=== PATIENT | female | born 1940 | race African-American/Black ===

== ENCOUNTER 2018-06-01 14:43 | Inpatient (IN) | payer MEDICARE, MEDICAID ==
[~2018-06-01] VITALS: Ht 165.1 cm; Wt 99.8 kg
--- NOTE | 2018-06-01 15:03 | NUR ---
[facility] FROM [facility] D/T LOW BLOOD PRESSURE PRIOR TO START OF HD. PATIENT'S BLOOD PRESSURE 114/49 UPON ARRIVAL TO ER. PATIENT IS TRACH DEPENDENT, ON 3 L OXYGEN. BREATHING EVEN AND UNLABORED. NO SOB, NAD, VITALS STABLE. IV PRESENT ON RIGHT HAND, 22 G FRONT DESK ATTENDANT. SAFETY AND COMFORT MEASURES IN PLACE. AWAITING MD ORDERS.
--- NOTE | 2018-06-01 15:24 | NUR ---
SELECT BANKER AT BEDSIDE FOR BLOOD DRAW.
[2018-06-01 15:41] LABS: BASOPHILS # (AUTO) 0.3 /CMM (0.0-0.2); BASOPHILS % (AUTO) 1.7 % (0.0-2.0); EOSINOPHILS % (AUTO) 2.3 % (0.0-6.0); HEMATOCRIT 33 % (33-45); HEMOGLOBIN 10.6 g/dL (11.5-14.8); LYMPHOCYTES # (AUTO) 1.5 /CMM (0.8-4.8); LYMPHOCYTES % (AUTO) 8.9 % (20.0-44.0); MEAN CORPUSCULAR HGB CONC 32 g/dl (31.0-36.0); MEAN CORPUSCULAR VOLUME 94 fL (82-100); MONOCYTES # (AUTO) 1.3 /CMM (0.1-1.30); MONOCYTES % (AUTO) 7.6 % (2.0-12.0); NEUTROPHILS % (AUTO) 79.5 % (43.0-81.0); PLATELET COUNT (AUTO) 290 /CMM (150-450); RDW COEFFICIENT OF VARIATION 21.4 (11.5-15.0); RED BLOOD CELL COUNT(AUTO) 3.53 MIL/uL (4.0-5.2); WHITE BLOOD COUNT (AUTO) 16.5 K/uL (4.3-11.0)
[2018-06-01 16:18] LABS: ALANINE AMINOTRANSFERASE 38 U/L (12-78); ALBUMIN 3.5 g/dL (3.4-5.0); ALKALINE PHOSPHATASE 271 U/L (46-116); ASPARTATE AMINOTRANSFERASE 27 U/L (15-37); BILIRUBIN,DIRECT 0.2 mg/dL (0.0-0.2); BILIRUBIN,TOTAL 0.5 mg/dL (0.2-1.0); CALCIUM, SERUM 10.4 mg/dL (8.5-10.1); CARBON DIOXIDE 35 mmol/L (21-32); CHLORIDE 105 mmol/L (98-107); CREATININE 5.3 mg/dL (0.6-1.3); GLUCOSE 156 mg/dL (74-106); SODIUM SERUM 148 mmol/L (136-145); TOTAL PROTEIN, SERUM 8.9 g/dL (6.4-8.2)
[2018-06-01 16:23] LABS: UREA NITROGEN, BLOOD 83 mg/dL (7-18)
--- NOTE | 2018-06-01 16:27 | NUR ---
RN NOTES RECEIVED PATIENT, OBTUNDED,TRACH IN PLACE AND PATENT. ON 2 LPM OXYGEN SUPPORT, BREATHING EVEN AND UNLABORED. PATIENT TRANSFERRED TO BED, VITAL SIGNS TAKEN FOLLOWS BP A28/66, HR AT 97, RR AT 18, TEMP AT 98.4.SATURATING WELL ON 99%. PHOTO OF THE SKIN ISSUES TAKEN. PATIENT CLEAN AND MADE COMFORTABLE. ASPIRATION AND SAFETY PRECAUTION PLACED IN. CALL LIGHT WITHIN PLACE WITHIN REACH. BED LOW AND LOCKED.
[2018-06-01 16:37] LABS: MAGNESIUM 2.8 mg/dL (1.8-2.4); PHOSPHORUS 5.1 mg/dL (2.5-4.9)
[2018-06-01] MEDS ORDERED: PIPERACILLIN /TAZOBACTAM 2.25 G in IV D5W 50 ML IV ONE (17:00)
--- NOTE | 2018-06-01 17:03 | NUR ---
CALLED DR GARNETT , LEFT A VOICEMAIL.
--- NOTE | 2018-06-01 17:33 | NUR ---
RN NOTES RECEIVED REPORT FROM THERESA MOORE FOR A PATIENT COMING IN DUE TO PULMONARY EDEMA WITH SHRUTHI ACUITY UNDER THE CARE OF DR. BONNER. ROOM PREPARED. BED ZERO DOWN.AWAITING PATIENTS ARRIVAL.
--- NOTE | 2018-06-01 17:33 | NUR ---
REPORT GIVEN TO RN, CHATO FOR MIMI UPON ADMISSION.
[2018-06-01] MEDS ORDERED: FOLI0.8T2 GT (17:47)
[2018-06-01] MEDS ORDERED: METO25TA6 PO (17:47)
[2018-06-01] MEDS ORDERED: APIX2.5T GT (17:47)
[2018-06-01] MEDS ORDERED: ACET-868 PO (17:47)
[2018-06-01] MEDS ORDERED: ASCO-340 GT (17:47)
[2018-06-01] MEDS ORDERED: LACT10SO GT (17:47)
[2018-06-01] MEDS ORDERED: ZINC220T GT (17:47)
[2018-06-01] MEDS ORDERED: INSU100V11 SQ (17:47)
[2018-06-01] MEDS ORDERED: LACT1CAP61 PO (17:47)
[2018-06-01] MEDS ORDERED: FAMO20TA8 GT (17:47)
[2018-06-01] MEDS ORDERED: MIDO10TA PO (17:47)
--- NOTE | 2018-06-01 18:27 | NUR ---
PATIENT TRANSPORTED TO [facility] VIA ACLS PROTOCOL. RN, CHATO TO PROVIDE MIMI.
[2018-06-01 20:00] VITALS: BP 122/58
[2018-06-01] MEDS ORDERED: ALBUMIN 25% 25 GM in PREMIX 1 EA IV ONE (20:00)
--- NOTE | 2018-06-01 20:24 | NUR ---
RN NOTES PATIENT ENDORSED FOR CONTINUTIY OF CARE.STABLE FOR THE ENTIRE TIME AFTER BEING TRANSFERRED TO UNIT FROM ER. BREATHING EVEN AND UNLABORED. NO SIGNS OF DISCOMFORT. FAMILY HISTORY, PAST MEDICAL HISTORY AND OTHER PERTINENT INFORMATION CANNOT BE SUFFICIENTLY OBTAIN FROM THE PATIENT DUE TO PATIENT ALTERED MENTAL STATUS. WILL ENDORSED.
[2018-06-01] MEDS ORDERED: INSULIN ASPART SQ PRN (23:30)
[2018-06-01] MEDS ORDERED: ACETAMINOPHEN 325 MG TABLET PO PRN (23:30)
--- NOTE | 2018-06-01 23:53 | NUR ---
TELE-TD/ACTUARIAL TECHNICIAN DR. BONNER IN TO SEE PT. NEW ORDERS RECEIVED AND CARRIED OUT.
[2018-06-02] VITALS: BP 97/43
[2018-06-02] MEDS ORDERED: ZINC SULFATE 220 MG CAPSULE PO ONE
[2018-06-02] MEDS ORDERED: DEXTROSE 50%-WATER 50 ML DISP.SYRIN IV PRN ×2 (01:00→06:30)
[2018-06-02] MEDS ORDERED: NEPRO 1,000 ML BOTTLE GT PRN ×2 (03:30)
[2018-06-02 04:00] VITALS: BP 106/49
[2018-06-02] MEDS ORDERED: Medication Not On Formulary EA (Midodrine Hcl 10 MG) PO SCH (05:00)
[2018-06-02] MEDS ORDERED: BLOOD SUGAR DIAGNOSTIC 1 EACH STRIP IN SCH (06:00)
[2018-06-02] MEDS ORDERED: INSULIN ASPART SQ PRN (06:00)
[2018-06-02] MEDS: BLOOD SUGAR DIAGNOSTIC 1 EACH STRIP IN SCH ×3 (06:16→18:23)
[2018-06-02] MEDS: INSULIN REGULAR, HUMAN 100 UNIT/ML 3 ML VIAL SQ PRN ×3 (06:18→17:48)
[2018-06-02 06:38] LABS: B-TYPE NATRIURETIC PEPTIDE 5029 PG/ML (0-125); CALCIUM, SERUM 9.8 mg/dL (8.5-10.1); CARBON DIOXIDE 29 mmol/L (21-32); CHLORIDE 106 mmol/L (98-107); CREATININE 4.2 mg/dL (0.6-1.3); GLUCOSE 230 mg/dL (74-106); POTASSIUM 4.5 mmol/L (3.5-5.1); SODIUM SERUM 146 mmol/L (136-145); UREA NITROGEN, BLOOD 54 mg/dL (7-18)
[2018-06-02 06:41] LABS: THYROID STIMULATING HORMONE 1.586 uIU/mL (0.358-3.74)
[2018-06-02 06:42] LABS: C-REACTIVE PROTEIN 5.3 mg/dL (0.0-0.9)
[2018-06-02 06:46] LABS: TROPONIN I 0.031 ng/mL (0.00-0.056)
[2018-06-02 07:24] LABS: BASOPHILS % (AUTO) 0.2 % (0.0-2.0); EOSINOPHILS % (AUTO) 2.4 % (0.0-6.0); HEMATOCRIT 31 % (33-45); HEMOGLOBIN 10.5 g/dL (11.5-14.8); LYMPHOCYTES # (AUTO) 1.7 /CMM (0.8-4.8); LYMPHOCYTES % (AUTO) 11.2 % (20.0-44.0); MEAN CORPUSCULAR HGB CONC 34 g/dl (31.0-36.0); MEAN CORPUSCULAR VOLUME 94 fL (82-100); MONOCYTES # (AUTO) 1.5 /CMM (0.1-1.30); MONOCYTES % (AUTO) 9.6 % (2.0-12.0); NEUTROPHILS # (AUTO) 11.5 /CMM (1.8-8.9); NEUTROPHILS % (AUTO) 76.6 % (43.0-81.0); PLATELET COUNT (AUTO) 218 /CMM (150-450); RDW COEFFICIENT OF VARIATION 21.1 (11.5-15.0); RED BLOOD CELL COUNT(AUTO) 3.33 MIL/uL (4.0-5.2); WHITE BLOOD COUNT (AUTO) 15.1 K/uL (4.3-11.0)
--- NOTE | 2018-06-02 07:30 | NUR ---
SHRUTHI RN OPENING NOTES RECEIVED REPOT FROM PM NURSE, PATIENT IN BED ,OBTUNDED. ON TELE MON ST 103.IV ON R HAND #22,R CHEST WALL HD CATH, IV SITE INTACT AND PATENT NO INFILTRATION NOTED, ON VENTILATOR.TOLERATING SETTINGS ORDERED. , NO SOB ,NO DISTRESS NOTED AT THIS TIME .BED IS LOCKED AND IN LOW POSITION.CALL LIGHT IN REACH.SRX3.WILL CONTINUE TO MONITOR..
[2018-06-02 08:00] VITALS: BP 112/45
[2018-06-02] MEDS: ZINC SULFATE 220 MG CAPSULE PO SCH (08:29)
[2018-06-02] MEDS: ACIDOPHILUS/BULGARICUS 1 EACH TAB.CHEW PO SCH (08:29)
[2018-06-02] MEDS: FAMOTIDINE (20 MG) 20 MG TABLET GT SCH (08:29)
[2018-06-02] MEDS: ACETAMINOPHEN 325 MG TABLET PO PRN (08:31)
[2018-06-02 09:47] LABS: ABG OXYGEN SATURATION 96.7 % (92.0-98.5); ABG PCO2 41.6 mmHg (35.0-45.0); ABG PH 7.424 (7.350-7.450); ABG PO2 98.9 mmHg (75.0-100.0); AaDO2 138.5 mmHg; COHb 0.3 % (0.5-1.5); MetHb 0.9 % (0.0-1.5); O2Hb 95.5 % (94.0-97.0); PEEP,BG 5 cm H2O; SITE, ABG Right Brachial; VT, ABG 500 mL
[2018-06-02] MEDS: APIXABAN 2.5 MG TABLET GT SCH ×2 (09:52→22:05)
[2018-06-02 12:00] VITALS: BP 85/39
[2018-06-02] MEDS: MIDODRINE HCL (5MG) 5 MG TABLET PO PRN (12:32)
[2018-06-02 16:00] VITALS: BP_SYST 110; BP_SYST 124; BP_DIAS 39; BP_DIAS 40
--- NOTE | 2018-06-02 16:15 | NUR ---
SKULL GRINDER NOTE SEEN BY .UPDATED ABOUT PATIENT CONDITION WITH LABS.WILL CONTINUE TO MONITOR.NOTIFIED BLOOD PRESSURE WAS LOW AND GIVEN PRN MEDS FOR LOW BLOOD PRESSURE.
--- NOTE | 2018-06-02 16:45 | NUR ---
RT RECD PT TRACHED INTACT AND SECURED ON MECH VENT LUCILLE ORDERED SETTING ALARMS ON AND AUDIBLE BAG & MASK AT HOB. SX THICK YELLOW MODERATE SECRETIONS. NO RESP DISTRESS NOTED ATT WILL CONTINUE TO MONITOR
--- NOTE | 2018-06-02 19:29 | NUR ---
AUTOMOBILE SALESMAN CLOSING NOTE PATIENT IN BED IN STABLE CONDITION.DIETARY RECOMMENDATION ,WILL ENDORSED TO PM NURSE TO F/U WITH WHILE DO ROUNDS.AND ALSO F/U WITH NEED FOR ATB FOR PATIENT.
[2018-06-02 20:00] VITALS: BP 119/37
--- NOTE | 2018-06-02 20:00 | NUR ---
SHRUTHI RN OPENING NOTES RECEIVED BEDSIDE REPORT FROM AM NURSE. PATIENT IN BED ,OBTUNDED. ON TELE MON ST 102. IV ON R HAND #22 IS INTACT, PATIENT, NO INFILTRATION NOTED. RIGHT CHEST WALL HD CATH IN PLACE AND INTACT, ON VENTILATOR,.TOLERATING SETTINGS ORDERED WELL. , NO SOB ,NO DISTRESS NOTED AT THIS TIME .BED IS LOCKED AND IN LOW POSITION.CALL LIGHT IN REACH.SRX3.WILL CONTINUE TO MONITOR.
[2018-06-02] MEDS ORDERED: Medication Not On Formulary EA (Lactulose 30 ML) GT SCH (22:00)
[2018-06-02] MEDS: LACTULOSE 10 G/15 ML UDC (PYXIS) PO SCH (22:06)
[2018-06-03] VITALS: BP 120/42
[2018-06-03] MEDS: BLOOD SUGAR DIAGNOSTIC 1 EACH STRIP IN SCH ×5 (00:50→23:27)
--- NOTE | 2018-06-03 00:50 | NUR ---
RN NOTES VICTOR HUGO FIGUEROA AT THE PATIENT'S BEDSIDE AND HAS BEEN NOTIFIED TERRITORY SALES EXECUTIVE RECOMMENDATION TO INCREASE GTF TO 45ML/HR. NEW ORDER IS IN PLACE. PATIENT HAS NO RESIDUAL AT THIS TIME.
[2018-06-03] MEDS: INSULIN REGULAR, HUMAN 100 UNIT/ML 3 ML VIAL SQ PRN ×5 (00:54→23:20)
[2018-06-03 04:00] VITALS: BP 111/52
--- NOTE | 2018-06-03 05:45 | NUR ---
PATIENT RECEIVED ON MECHANICAL VENTILATION WITH SETTINGS OF AC 12, 500 VT, 40%, +5. SUCTIONED FOR MINIMAL, THIN, YELLOW-CREAM SECRETIONS. NO OTHER ADVERSE REACTIONS NOTED. AMBU BAG AT BEDSIDE. VENT AND PULSE OXIMETER ALARMS AUDIBLE AND VISIBLE. VENT IS PLUGGED IN RED OUTLET. Addendum: 06/03/18 at 0547 by CONY CARLIN RT Amended: Links added.
[2018-06-03] MEDS ORDERED: PIPERACILLIN /TAZOBACTAM 2.25 G VIAL IV ONE (06:14)
[2018-06-03 06:20] LABS: BASOPHILS % (AUTO) 0.2 % (0.0-2.0); CARBON DIOXIDE 31 mmol/L (21-32); CHLORIDE 103 mmol/L (98-107); CREATININE 4.4 mg/dL (0.6-1.3); EOSINOPHILS % (AUTO) 1.2 % (0.0-6.0); GLUCOSE 296 mg/dL (74-106); HEMATOCRIT 32 % (33-45); HEMOGLOBIN 9.9 g/dL (11.5-14.8); LYMPHOCYTES # (AUTO) 1.7 /CMM (0.8-4.8); LYMPHOCYTES % (AUTO) 8.3 % (20.0-44.0); MEAN CORPUSCULAR HGB CONC 31 g/dl (31.0-36.0); MEAN CORPUSCULAR VOLUME 96 fL (82-100); NEUTROPHILS # (AUTO) 16.1 /CMM (1.8-8.9); NEUTROPHILS % (AUTO) 80.3 % (43.0-81.0); PLATELET COUNT (AUTO) 250 /CMM (150-450); POTASSIUM 4.5 mmol/L (3.5-5.1); RDW COEFFICIENT OF VARIATION 23.5 (11.5-15.0); RED BLOOD CELL COUNT(AUTO) 3.31 MIL/uL (4.0-5.2); SODIUM SERUM 144 mmol/L (136-145); UREA NITROGEN, BLOOD 55 mg/dL (7-18)
[2018-06-03] MEDS: PIPERACILLIN /TAZOBACTAM 2.25 G in IV D5W 50 ML IV SCH ×4 (06:52→23:11)
--- NOTE | 2018-06-03 07:15 | NUR ---
HIDE TANNER INITIAL NOTES RECEIVED PT IN BED. TRACH TO VENT SETTINGS MD ORDERED. PT O2 SAT AT 100% NO SIGNS OF RESP DISTRESS. HOB ELEVATED SEMI FOWLERS. PT IS OBTUNDED BUT OPENS EYES. PT HAD EPISODE OF VERY LARGE LOOSE STOOL DOWN TO LEGS. WOUND NURSE AT BS. ORDERED FLEXISEAL AND ATTACHED. SAFETY PRECAUTIONS MAINTAINED. CALL LIGHT IN REACH. WILL CONT TO MONITOR.
[2018-06-03 08:00] VITALS: BP 114/54
--- NOTE | 2018-06-03 08:37 | NUR ---
RT RECEIVED PT [facility]/ NOTED SETTINGS. PAPER TWISTER TENDER DONE AND TRACH IS SECURE. VENT ALARMS CHECKED AND AUDIBLE. VENT PLUGGED IN RED OUTLET. AMBU BAG NOTED HOB. PT ON CONTINUOUS PULSE OX. PT TOLERATING SETTINGS WELL. SX WITH MOD THK WHITE/CLEAR SECRETIONS. NO SOB OR RESP DISTRESS NOTED, WILL CONTINUE TO MONITOR T/O SHIFT.
[2018-06-03] MEDS: ACIDOPHILUS/BULGARICUS 1 EACH TAB.CHEW PO SCH (08:48)
[2018-06-03] MEDS: APIXABAN 2.5 MG TABLET GT SCH ×2 (08:48→21:48)
[2018-06-03] MEDS: ZINC SULFATE 220 MG CAPSULE PO SCH (08:48)
[2018-06-03] MEDS: FAMOTIDINE (20 MG) 20 MG TABLET GT SCH (08:49)
[2018-06-03] MEDS ORDERED: HYDROGEL DRESSING 90 GM TUBE TP PRN (09:30)
--- NOTE | 2018-06-03 09:36 | NUR ---
WOUND CARE CONSULT: PT PRESENTS WITH VERY LARGE AMOUNT OF LIQUID STOOL. UNSTAGEABLE PRESSURE ULCER NOTED TO SACRUM AND STAGE 3 ULCER NOTED TO RT POSTERIOR THIGH, RASH WITH MOISTURE ASSOCIATED SKIN IRRITATION TO RT ABDOMINAL FOLD, PRESENT ON ADMISSION. PT ON NGOC ISOFLEX LOW AIRLOSS BED. ALL SKIN PROTECTION AND WOUND CARE RECOMMENDATIONS DISCUSSED WITH NURSING STAFF. SURGICAL CONSULT RECOMMENDED. WILL SEE PRN. SHER IN AGREEMENT WITH PLAN OF CARE. CURRENT KEVIN SCORE IS 10. Addendum: 06/03/18 at 0939 by BEVERLY PARKS WNDNU Amended: Links added.
[2018-06-03] MEDS: HYDROGEL DRESSING 90 GM TUBE TP SCH (10:35)
[2018-06-03] MEDS: Z GUARD REMEDY 2 OZ OINT TP PRN ×3 (10:35→10:43)
[2018-06-03] MEDS: ACETAMINOPHEN 325 MG TABLET PO PRN (10:38)
[2018-06-03] MEDS: Z GUARD REMEDY 2 OZ OINT TP SCH (10:44)
--- NOTE | 2018-06-03 11:38 | NUR ---
BATCH ROLLER OPERATOR NOTES HD DIALYSIS NURSE STARTED HD FLUIDS ONLY: AT 10 AM BP 110/53 HR 98 END WITH 2L OUT: 105/47 HR 104.
[2018-06-03 12:00] VITALS: BP 99/52
[2018-06-03 16:00] VITALS: BP 99/52
--- NOTE | 2018-06-03 16:30 | NUR ---
ms mays stool specimen for cdiff sent to lab.
--- NOTE | 2018-06-03 16:47 | NUR ---
ms rn on bed, no distress noted,all needs attended.
[2018-06-03] MEDS: CLOTRIMAZOLE 1% 15 GM TUBE TP SCH (17:27)
[2018-06-03] MEDS: NEPRO 1,000 ML BOTTLE GT PRN (18:01)
--- NOTE | 2018-06-03 19:30 | NUR ---
CHRISTMAS [employer]REE [employer] CREW BOSS ENDING NOTES PT ENDORSED TO PM NURSE FOR CONTINUED CARE. PT IS NOT IN DISTRESS. BED IN LOCKED/LOW POSITION. CALL LIGHT IN REACH. SAFETY PRECAUTIONS MAINTAINED.
[2018-06-03 20:00] VITALS: BP 92/44
[2018-06-03] MEDS: LACTULOSE 10 G/15 ML UDC (PYXIS) PO SCH (21:50)
[2018-06-04] VITALS: BP 118/43
[2018-06-04 04:00] VITALS: BP 99/40
[2018-06-04] MEDS: PIPERACILLIN /TAZOBACTAM 2.25 G in IV D5W 50 ML IV SCH ×4 (05:22→23:28)
[2018-06-04 06:03] LABS: BASOPHILS % (AUTO) 0.3 % (0.0-2.0); EOSINOPHILS % (AUTO) 2.6 % (0.0-6.0); HEMATOCRIT 33 % (33-45); HEMOGLOBIN 10.3 g/dL (11.5-14.8); LYMPHOCYTES # (AUTO) 1.5 /CMM (0.8-4.8); LYMPHOCYTES % (AUTO) 10.7 % (20.0-44.0); MEAN CORPUSCULAR HGB CONC 31 g/dl (31.0-36.0); MEAN CORPUSCULAR VOLUME 96 fL (82-100); MONOCYTES # (AUTO) 1.3 /CMM (0.1-1.30); MONOCYTES % (AUTO) 9.3 % (2.0-12.0); NEUTROPHILS # (AUTO) 10.7 /CMM (1.8-8.9); NEUTROPHILS % (AUTO) 77.1 % (43.0-81.0); PLATELET COUNT (AUTO) 227 /CMM (150-450); RDW COEFFICIENT OF VARIATION 23.4 (11.5-15.0); RED BLOOD CELL COUNT(AUTO) 3.45 MIL/uL (4.0-5.2); WHITE BLOOD COUNT (AUTO) 13.9 K/uL (4.3-11.0)
[2018-06-04 06:13] LABS: B-TYPE NATRIURETIC PEPTIDE 4453 PG/ML (0-125); CALCIUM, SERUM 9.8 mg/dL (8.5-10.1); CARBON DIOXIDE 27 mmol/L (21-32); CHLORIDE 102 mmol/L (98-107); CREATININE 5.4 mg/dL (0.6-1.3); SODIUM SERUM 140 mmol/L (136-145); UREA NITROGEN, BLOOD 70 mg/dL (7-18)
[2018-06-04 06:22] LABS: GLUCOSE 378 mg/dL (74-106)
[2018-06-04] MEDS: INSULIN REGULAR, HUMAN 100 UNIT/ML 3 ML VIAL SQ PRN ×4 (06:34→23:22)
[2018-06-04] MEDS: BLOOD SUGAR DIAGNOSTIC 1 EACH STRIP IN SCH ×4 (06:34→23:22)
--- NOTE | 2018-06-04 06:35 | NUR ---
RN NOTES PATIENT IN BED RESTING COMFORTABLY WITH NO RESPIRATORY DISTRESS OR SHORTNESS OF BREATH. VENT SETTING WELL TOLERATED. ON GTUBE FEEDING, NO LEAKAGE, 0 RESIDUAL. FEEDING WELL TOLERATED. HEAD OF BED ELEVATED. ABDOMEN SOFT AND NON TENDER. NO PHYSICAL MANIFESTATION OF PAIN OR DISCOMFORT. NOTED WITH HIGH BLOOD SUGAR LEVEL OF 376, ADMINISTERED 10 UNITS OF INSULIN. KEPT CLEAN AND DRY. WILL ENDORSE TO AM SHIFT FOR CONTINUITY OF CARE
--- NOTE | 2018-06-04 07:10 | NUR ---
TELE/RN INITIAL NOTES RECEIVED PT IN BED, OBTUNDED. SINUS TACHY HR 103 ON TELEMONITOR. WITH INTACT TRACH PORTEX 8; TOLERATING VENT SETTINGS AC 14, TV 500, FIO2 40, PEEP 5. NO SOB NOTED. FLEXI SEAL INTACT AND IN PLACED. DRAINING LOOSE BROWN STOOL. GT INTACT AND IN PLACED, WITH ONGOING GTF NEPHRO 65 ML/HR TOLERATING WELL, NO RESIDUALS NOTED.HOB ELEVATED. RUCHEST HD CATH INTACT. RHAND G22 SL INTACT AND PATENT. SAFETY MEASURES IN PLACED. WILL CONT TO MONITOR
[2018-06-04 08:00] VITALS: BP_SYST 87; BP_DIAS 14; BP_DIAS 40
[2018-06-04] MEDS: ZINC SULFATE 220 MG CAPSULE PO SCH (08:53)
[2018-06-04] MEDS: FAMOTIDINE (20 MG) 20 MG TABLET GT SCH (08:53)
[2018-06-04] MEDS: ACIDOPHILUS/BULGARICUS 1 EACH TAB.CHEW PO SCH (08:53)
[2018-06-04] MEDS: APIXABAN 2.5 MG TABLET GT SCH ×2 (08:53→21:23)
[2018-06-04] MEDS: MIDODRINE HCL (5MG) 5 MG TABLET PO PRN (08:54)
[2018-06-04] MEDS: HYDROGEL DRESSING 90 GM TUBE TP SCH (08:54)
[2018-06-04] MEDS: CLOTRIMAZOLE 1% 15 GM TUBE TP SCH ×2 (08:55→16:25)
[2018-06-04] MEDS: Z GUARD REMEDY 2 OZ OINT TP SCH (08:56)
[2018-06-04 12:00] VITALS: BP 100/25
--- NOTE | 2018-06-04 15:10 | NUR ---
RN NOTES PT'S TEMPT 99.1, COOLING MEASURES GIVEN, PRN TYLENOL GIVEN. WILL CONT TO MONITOR
[2018-06-04] MEDS: ACETAMINOPHEN 325 MG TABLET PO PRN (15:12)
[2018-06-04 16:00] VITALS: BP 100/27
--- NOTE | 2018-06-04 16:04 | NUR ---
RN NOTES RECHECKED PT'S TEMPT=98.1
[2018-06-04] MEDS: NEPRO 1,000 ML BOTTLE GT PRN (16:23)
--- NOTE | 2018-06-04 17:25 | NUR ---
RN NOTES PT'S WE=830, 10 UNITS REGULAR WILL BE GIVEN VIA SQ. DR BONNER NOTIFIED
--- NOTE | 2018-06-04 18:00 | NUR ---
RN NOTES REPEAT [id number], NOTIFIED DR BONNER. AWAITING FOR NEW ORDERS
--- NOTE | 2018-06-04 19:23 | NUR ---
RN NOTES PT IN STABLE CONDITION. NO ACUTE DISTRESS NOTED THROUGHOUT SHIFT. ASPIRATION AND SAFETY MEASURES OBSERVED AT ALL TIMES. ALL NEEDS ANTICIPATED. ENDORSED TO PM SHIFT RN FOR MIMI
[2018-06-04 20:00] VITALS: BP 112/53
--- NOTE | 2018-06-04 20:05 | NUR ---
PT RCVD TRACH'D ON MECHANICAL VENT WITH CHARTED SETTINGS. PT TOLERATING SETTINGS WELL AT THIS TIME. SX DONE. PT TRACH PATENT AND SECURE. AMBU BAG AT BEDSIDE. VENT PLUGGED INTO RED OUTLET. ALARMS ARE ON AND AUDIBLE. WILL CONTINUE TO MONITOR. Addendum: 06/04/18 at 2006 by CATY AKINS RT Amended: Links added.
[2018-06-04] MEDS: LACTULOSE 10 G/15 ML UDC (PYXIS) PO SCH (22:00)
[2018-06-05] VITALS (9 sets, daily range): BP systolic 89–105; BP diastolic 36–50
[2018-06-05] MEDS: BLOOD SUGAR DIAGNOSTIC 1 EACH STRIP IN SCH ×7 (01:58→16:50)
[2018-06-05] MEDS: INSULIN REGULAR, HUMAN 100 UNIT/ML 3 ML VIAL SQ PRN ×6 (01:58→16:58)
[2018-06-05] MEDS ORDERED: DEXTROSE 50%-WATER 50 ML DISP.SYRIN IV PRN (02:00)
[2018-06-05] MEDS: PIPERACILLIN /TAZOBACTAM 2.25 G in IV D5W 50 ML IV SCH ×3 (05:16→16:50)
[2018-06-05 06:51] LABS: CALCIUM, SERUM 10.5 mg/dL (8.5-10.1); CARBON DIOXIDE 27 mmol/L (21-32); CHLORIDE 100 mmol/L (98-107); CREATININE 5.9 mg/dL (0.6-1.3); GLUCOSE 335 mg/dL (74-106); MAGNESIUM 2.8 mg/dL (1.8-2.4); PHOSPHORUS 4.9 mg/dL (2.5-4.9); POTASSIUM 4.1 mmol/L (3.5-5.1); SODIUM SERUM 141 mmol/L (136-145); UREA NITROGEN, BLOOD 79 mg/dL (7-18)
[2018-06-05 06:58] LABS: BASOPHILS % (AUTO) 0.2 % (0.0-2.0); EOSINOPHILS % (AUTO) 2.5 % (0.0-6.0); HEMATOCRIT 31 % (33-45); HEMOGLOBIN 9.8 g/dL (11.5-14.8); LYMPHOCYTES # (AUTO) 1.9 /CMM (0.8-4.8); LYMPHOCYTES % (AUTO) 9.2 % (20.0-44.0); MEAN CORPUSCULAR HGB CONC 32 g/dl (31.0-36.0); MEAN CORPUSCULAR VOLUME 97 fL (82-100); MONOCYTES # (AUTO) 1.9 /CMM (0.1-1.30); MONOCYTES % (AUTO) 9.1 % (2.0-12.0); NEUTROPHILS # (AUTO) 16.5 /CMM (1.8-8.9); PLATELET COUNT (AUTO) 202 /CMM (150-450); RDW COEFFICIENT OF VARIATION 22.7 (11.5-15.0); RED BLOOD CELL COUNT(AUTO) 3.17 MIL/uL (4.0-5.2); WHITE BLOOD COUNT (AUTO) 20.9 K/uL (4.3-11.0)
--- NOTE | 2018-06-05 06:59 | NUR ---
RN NOTES IN BED RESTING COMFORTABLY WITH NO DISTRESS NOTED. BREATHING EVEN AND UNLABORED. NO PHYSICAL MANIFESTATION OF PAIN OR DISCOMFORT. OBTUNDED, OPENS EYES. NO TRACKING NOTED. NO SIGNIFICANT CHANGE OF CONDITION. KEPT CLEAN AND DRY. WILL ENDORSE TO AM SHIFT FOR CONTINUITY OF CARE
[2018-06-05] MEDS: ZINC SULFATE 220 MG CAPSULE PO SCH (09:21)
[2018-06-05] MEDS: FAMOTIDINE (20 MG) 20 MG TABLET GT SCH (09:21)
[2018-06-05] MEDS: APIXABAN 2.5 MG TABLET GT SCH ×2 (09:21→21:38)
[2018-06-05] MEDS: ACIDOPHILUS/BULGARICUS 1 EACH TAB.CHEW PO SCH (09:21)
[2018-06-05] MEDS: HYDROGEL DRESSING 90 GM TUBE TP SCH (09:22)
[2018-06-05] MEDS: CLOTRIMAZOLE 1% 15 GM TUBE TP SCH ×2 (09:22→16:42)
[2018-06-05] MEDS: Z GUARD REMEDY 2 OZ OINT TP SCH (09:24)
--- NOTE | 2018-06-05 10:15 | NUR ---
Patient completed dialysis and had blood pressure of 101/43 and pulse of 101 afterward. Five hundred milliliters was removed.
--- NOTE | 2018-06-05 15:55 | NUR ---
Attempt 22 g left wrist x2. Missed patient vein once. Blew the vein the next attempt. Pressure dressing applied. Endorsed to THERESA Blackburn. Addendum: 06/05/18 at 1556 by JEIMY PAIZ RN Above was right wrist
--- NOTE | 2018-06-05 17:12 | NUR ---
Alexey mercedes IV x2 patient needs for further assistance. Addendum: 06/05/18 at 1713 by JEIMY PAIZ RN Leatha villagomez
--- NOTE | 2018-06-05 19:52 | NUR ---
HANDOFF TO NIGHT NURSE, THERESA IZAGUIRRE.
--- NOTE | 2018-06-05 20:30 | NUR ---
PATIENT WAS RECEIVED ON CONTINUOUS VENT SUPPORT ON NOTED VENT SETTINGS. B/S RHONCHI SUCTIONED WITH A MODERATE AMOUNT OF THIN PALE YELLOWISH SECRETIONS. VENT PLUGGED INTO RED OUTLET. AMBUBAG AND SPARE TRACH AT BEDSIDE. TRACH TUBE PATENT AND SECURED. PATIENT STABLE AT THIS TIME. WILL CONTINUE TO MONITOR. Addendum: 06/05/18 at 2031 by MONIQUE JANSEN RT Amended: Links added.
[2018-06-05] MEDS: LACTULOSE 10 G/15 ML UDC (PYXIS) PO SCH (21:48)
[2018-06-06] VITALS: BP 104/82
[2018-06-06] MEDS: PIPERACILLIN /TAZOBACTAM 2.25 G in IV D5W 50 ML IV SCH ×4 (00:01→19:03)
[2018-06-06 04:00] VITALS: BP 97/53
[2018-06-06] MEDS: BLOOD SUGAR DIAGNOSTIC 1 EACH STRIP IN SCH ×4 (05:40→18:59)
[2018-06-06] MEDS: INSULIN REGULAR, HUMAN 100 UNIT/ML 3 ML VIAL SQ PRN ×4 (05:40→19:01)
--- NOTE | 2018-06-06 07:03 | NUR ---
RN NOTES PATIENT IN BED RESTING COMFORTABLY. NO DISTRESS NOTED. BREATHING EVEN AND UNLABORED. VENT SETTING WELL TOLERATED. NO PHYSICAL MANIFESTATION OF PAIN OR DISCOMFORT. NOTED WITH HIGH BLOOD SUGAR LEVEL OF 416, RELAYED TO MD, WAITING FOR RESPONSE. KEPT CLEAN AND DRY WILL ENDORSE TO AM SHIFT FOR CONTINUITY OF CARE
--- NOTE | 2018-06-06 07:30 | NUR ---
INITIAL PATIENT IN BED RESTING COMFORTABLY. NO DISTRESS NOTED. BREATHING EVEN AND UNLABORED. VENT SETTING WELL TOLERATED. NO PHYSICAL MANIFESTATION OF PAIN OR DISCOMFORT. NOTED WITH HIGH BLOOD SUGAR LEVEL OF 416, BY ADULT AND PEDIATRIC NEUROLOGIST RN RELAYED TO MD,STILL WAITING FOR RESPONSE. KEPT CLEAN AND DRY WILL ENDORSE TO AM SHIFT FOR CONTINUITY OF CARE
[2018-06-06 08:00] VITALS: BP 115/55
[2018-06-06] MEDS: CLOTRIMAZOLE 1% 15 GM TUBE TP SCH ×2 (10:12→17:54)
[2018-06-06] MEDS: HYDROGEL DRESSING 90 GM TUBE TP SCH (10:12)
[2018-06-06] MEDS: ACIDOPHILUS/BULGARICUS 1 EACH TAB.CHEW PO SCH (10:12)
[2018-06-06] MEDS: FAMOTIDINE (20 MG) 20 MG TABLET GT SCH (10:12)
[2018-06-06] MEDS: ZINC SULFATE 220 MG CAPSULE PO SCH (10:12)
[2018-06-06] MEDS: APIXABAN 2.5 MG TABLET GT SCH ×2 (10:13→21:26)
[2018-06-06] MEDS: Z GUARD REMEDY 2 OZ OINT TP SCH (10:13)
[2018-06-06] MEDS: NEPRO 1,000 ML BOTTLE GT PRN (10:53)
[2018-06-06 12:00] VITALS: BP 109/45
[2018-06-06 16:00] VITALS: BP_SYST 81; BP_SYST 83; BP_DIAS 36; BP_DIAS 37
[2018-06-06 20:00] VITALS: BP 114/45
--- NOTE | 2018-06-06 20:00 | NUR ---
MASONRY INSTRUCTOR INITIAL NOTES, PATIENT IN BED RESTING COMFORTABLY ON MECHANICAL VENTILATOR TOLERATING SETTINGS WELL, BREATHING EVEN AND UNLABORED, NO DISTRESS NOTED OR SOB AT THIS TIME, NO S/S OF PAIN OR DISCOMFORT, GTF INFUSING WELL AND PATIENT TOLERATED WELL, NO RESIDUAL NOTED AT THIS TIME, KEPT CLEAN AND DRY, AND WELL REPOSITIONED AT THIS TIME, WILL CONTINUE TO MONITOR CLOSELY,
[2018-06-06] MEDS: LACTULOSE 10 G/15 ML UDC (PYXIS) PO SCH (21:26)
[2018-06-07] VITALS: BP 101/46
[2018-06-07] MEDS: PIPERACILLIN /TAZOBACTAM 2.25 G in IV D5W 50 ML IV SCH ×4 (00:07→21:14)
[2018-06-07] MEDS: BLOOD SUGAR DIAGNOSTIC 1 EACH STRIP IN SCH ×4 (00:10→17:39)
[2018-06-07] MEDS: INSULIN REGULAR, HUMAN 100 UNIT/ML 3 ML VIAL SQ PRN ×4 (00:13→17:41)
--- NOTE | 2018-06-07 00:43 | NUR ---
POSTAL SUPERINTENDENT NOTES, MD BONNER AT THIS DEPARTMENT AT THIS TIME, REVIEWED THE BS LEVELS FOR THE LAST DAY FOR PATIENT AND ORDERED TO GIVE 30 UNITS LANTUS NOW TIMES ONCE, ORDER NOTED AND CARRIED OUT, WILL CONTINUE TO MONITOR CLOSELY.
[2018-06-07] MEDS ORDERED: INSULIN GLARGINE, 100 UNIT/ML CARTRIDGE SQ ONE (01:00)
[2018-06-07 04:00] VITALS: BP 121/58
--- NOTE | 2018-06-07 06:01 | NUR ---
PATIENT RECEIVED IN MECHANICAL VENTILATION SUPPORT WITH SETTINGS OF AC 12, 500 VT, 40%, +5. SUCTIONED FOR MINIMAL, THIN, YELLOW-CREAM SECRETIONS. AMBU BAG AT BEDSIDE. VENT AND PULSE OXIMETER ALARMS AUDIBLE AND VISIBLE. VENT IS PLUGGED IN RED OUTLET. NO OTHER ADVERSE REACTIONS NOTED. Addendum: 06/07/18 at 0603 by CONY CARLIN RT Amended: Links added.
[2018-06-07 07:00] LABS: BASOPHILS % (AUTO) 0.2 % (0.0-2.0); EOSINOPHILS % (AUTO) 3.4 % (0.0-6.0); HEMATOCRIT 29 % (33-45); HEMOGLOBIN 9.1 g/dL (11.5-14.8); LYMPHOCYTES # (AUTO) 1.2 /CMM (0.8-4.8); LYMPHOCYTES % (AUTO) 9.1 % (20.0-44.0); MEAN CORPUSCULAR HGB CONC 31 g/dl (31.0-36.0); MEAN CORPUSCULAR VOLUME 95 fL (82-100); MONOCYTES # (AUTO) 1.3 /CMM (0.1-1.30); MONOCYTES % (AUTO) 10.1 % (2.0-12.0); NEUTROPHILS % (AUTO) 77.2 % (43.0-81.0); PLATELET COUNT (AUTO) 226 /CMM (150-450); RDW COEFFICIENT OF VARIATION 22.5 (11.5-15.0); RED BLOOD CELL COUNT(AUTO) 3.08 MIL/uL (4.0-5.2); WHITE BLOOD COUNT (AUTO) 12.9 K/uL (4.3-11.0)
--- NOTE | 2018-06-07 07:00 | NUR ---
MOBILE DEVELOPER CLOSING NOTES, PATIENT IN BED ON MECHANICAL VENTILATOR TOLERATING SETTINGS WELL, BREATHING EVEN AND UNLABORED, NO DISTRESS NOTED OR SOB AT THIS TIME, NO S/S OF PAIN OR DISCOMFORT, GTF INFUSING WELL AND PATIENT TOLERATED WELL, KEPT CLEAN AND DRY, AND WELL REPOSITIONED AT THIS TIME, NO SIGNIFICANT CHANGE IN CONDITION DURING THE SHIFT, WILL ENDORSE CONTINUITY OF CARE TO ONCOMING NURSE.
[2018-06-07 07:05] LABS: CARBON DIOXIDE 25 mmol/L (21-32); CHLORIDE 97 mmol/L (98-107); CREATININE 5.4 mg/dL (0.6-1.3); GLUCOSE 336 mg/dL (74-106); POTASSIUM 3.6 mmol/L (3.5-5.1); SODIUM SERUM 138 mmol/L (136-145); UREA NITROGEN, BLOOD 71 mg/dL (7-18)
[2018-06-07 08:00] VITALS: BP_SYST 104; BP_SYST 124; BP_DIAS 47; BP_DIAS 77
--- NOTE | 2018-06-07 08:00 | NUR ---
RN NOTES, PATIENT RECEIVED RESTING COMFORTABLY IN BED, ON MECHANICAL VENTILATOR WITH PRESCRIBED SETTINGS, BREATHING EVEN AND UNLABORED, NO SIGN OF SOB AT THIS TIME, SATURATING WELL AT 100%, TRACH TUBE IN PLACE, SUCTIONED FOR PATENCY, NO INDICATION OF PAIN OR DISCOMFORT, WITH R UPPER ARM MIDLINE: SALINE LOCK, GT PATENT ON FLUSHING, PATIENT TOLERATING FEEDING WELL, NO RESIDUAL NOTED AT THIS TIME, FLEXI SEAL IN PLACE AND DRAINING TO LIQUIDLY STOOL, ASPIRATION AND SAFETY MEASURES IN PLACE, WILL MONITOR PATIENT CLOSELY
[2018-06-07] MEDS: FAMOTIDINE (20 MG) 20 MG TABLET GT SCH (09:28)
[2018-06-07] MEDS: ZINC SULFATE 220 MG CAPSULE PO SCH (09:29)
[2018-06-07] MEDS: ACIDOPHILUS/BULGARICUS 1 EACH TAB.CHEW PO SCH (09:29)
--- NOTE | 2018-06-07 09:30 | NUR ---
RN NOTES PATIENT OFFERED SCD SOCKS FOR INTERMITTENT COMPREDDION DEVICE TO BE IN PLACE, " ILL JUST WALK AROUND. IKNOW THEY'RE FOR CLOTS BUT THEY ARE NOT COMFORTABLE." MACHINE AVAILABLE AT BEDSIDE.
[2018-06-07] MEDS: CLOTRIMAZOLE 1% 15 GM TUBE TP SCH ×2 (09:32→17:41)
[2018-06-07] MEDS: HYDROGEL DRESSING 90 GM TUBE TP SCH (09:32)
[2018-06-07] MEDS: Z GUARD REMEDY 2 OZ OINT TP SCH (09:33)
[2018-06-07] MEDS: APIXABAN 2.5 MG TABLET GT SCH ×2 (10:09→21:14)
[2018-06-07 12:00] VITALS: BP 117/70
--- NOTE | 2018-06-07 13:10 | NUR ---
RN NOTES PATIENT STARTED ON DIALYSIS TREATMENT AT THIS TIME.
[2018-06-07] MEDS: ALBUMIN 25% 25 GM in PREMIX 1 EA IV PRN (14:42)
[2018-06-07] MEDS: NEPRO 1,000 ML BOTTLE GT PRN (15:48)
[2018-06-07 16:00] VITALS: BP 106/49
--- NOTE | 2018-06-07 17:00 | NUR ---
RN NOTES DIALYSIS TREATMENT DONE. 300 ML TAKEN FROM THE PATIENT. PATIENT ABLE TO TOLERATE PROCEDURE WELL.BP AT 95/41MMHG, HR AT 90. WILL CONTINUE TO MONITOR PATIENT.
--- NOTE | 2018-06-07 19:18 | NUR ---
RT NOTE: RECEIVED TRACH PT ON MECHANICAL VENT WITH NOTED SETTINGS. SX DONE. PT TRACH PATENT AND SECURE. SPORTS BOOK WRITER DONE. AMBU BAG AT BEDSIDE. VENT PLUGGED INTO RED OUTLET. ALARMS ARE ON AND AUDIBLE. WILL CONTINUE TO MONITOR. Addendum: 06/07/18 at 2324 by KIM MESSER RT Amended: Links added.
--- NOTE | 2018-06-07 19:20 | NUR ---
RN NOTES ENDORSED PATIENT FOR CONTINUITY OF CARE. NO ACUTE CHANGES WITHIN THE SHIFT. ALL NURSING NEEDS ANTICIPATED AND MET. ASPIRATION PRECAUTION AND SAFETY MEASURES MAINTAINED. BED LOW AND LOCKED.
[2018-06-07 20:00] VITALS: BP 112/47
[2018-06-07] MEDS: LACTULOSE 10 G/15 ML UDC (PYXIS) PO SCH (21:15)
[2018-06-08] VITALS: BP 87/35
[2018-06-08] MEDS: BLOOD SUGAR DIAGNOSTIC 1 EACH STRIP IN SCH ×5 (00:01→23:50)
[2018-06-08] MEDS: INSULIN REGULAR, HUMAN 100 UNIT/ML 3 ML VIAL SQ PRN ×5 (00:03→23:53)
[2018-06-08] MEDS: MIDODRINE HCL (5MG) 5 MG TABLET PO PRN (00:42)
--- NOTE | 2018-06-08 00:46 | NUR ---
DOCUMENT EXAMINER NOTES, NOTED PATIENT WITH BP 87/35, MIDODRINE 10MG PRN ADMINISTERED ORDERED, WILL CONTINUE TO MONITOR CLOSELY.
--- NOTE | 2018-06-08 01:30 | NUR ---
DRYERMAN/WOMAN NOTES, AFTER BP RECHECK BP NOTED 124/51, WILL CONTINUE TO MONITOR CLOSELY.
[2018-06-08 04:00] VITALS: BP 116/60
[2018-06-08] MEDS: PIPERACILLIN /TAZOBACTAM 2.25 G in IV D5W 50 ML IV SCH ×3 (05:21→21:46)
--- NOTE | 2018-06-08 07:00 | NUR ---
CHECKERING MACHINE ADJUSTER CLOSING NOTES, PATIENT IN BED ON MECHANICAL VENTILATOR TOLERATING SETTINGS WELL, BREATHING EVEN AND UNLABORED, NO DISTRESS NOTED OR SOB AT THIS TIME, NO S/S OF PAIN OR DISCOMFORT, GTF INFUSING WELL AND PATIENT TOLERATED WELL, KEPT CLEAN AND DRY, AND WELL REPOSITIONED AT THIS TIME, EPISODE OF HYPOTENSION DURING CORK MIXER MIDODRINE GIVEN AFTER THAT BP WNL, WILL ENDORSE CONTINUITY OF CARE TO ONCOMING NURSE.
--- NOTE | 2018-06-08 07:41 | NUR ---
Received female pt on mechanical vent. Pt trach is secure. Vent is plugged into a red outlet, alarms are set and audible, and BMV is at bedside. Addendum: 06/08/18 at 0746 by JESSICA WEISS RT Amended: Links added.
--- NOTE | 2018-06-08 07:51 | NUR ---
RN NOTES, PATIENT RECEIVED RESTING COMFORTABLY IN BED, ON MECHANICAL VENTILATOR WITH PRESCRIBED SETTINGS, BREATHING EVEN AND UNLABORED, NO SIGN OF SOB AT THIS TIME, SATURATING WELL AT 100%, TRACH TUBE IN PLACE, SUCTIONED FOR PATENCY, NO SIGN OF PAIN OR DISCOMFORT, WITH R UPPER ARM MIDLINE: WITH NS RUNNING AT TKO, GTF NEPRO RUNNING AT 45CC/HR, GT PATENT ON FLUSHING, PATIENT TOLERATING FEEDING WELL, NO RESIDUAL NOTED AT THIS TIME, FLEXI SEAL IN PLACE, NO STOOL NOTED AT THIS TIME, ASPIRATION AND SAFETY MEASURES IN PLACE, CALL LIGHT IN REACH, WILL MONITOR PATIENT CLOSELY
[2018-06-08 08:00] VITALS: BP 101/40
[2018-06-08] MEDS: CLOTRIMAZOLE 1% 15 GM TUBE TP SCH ×2 (08:46→17:59)
[2018-06-08] MEDS: HYDROGEL DRESSING 90 GM TUBE TP SCH (08:46)
[2018-06-08] MEDS: Z GUARD REMEDY 2 OZ OINT TP SCH (08:47)
[2018-06-08] MEDS: ACIDOPHILUS/BULGARICUS 1 EACH TAB.CHEW PO SCH (08:48)
[2018-06-08] MEDS: APIXABAN 2.5 MG TABLET GT SCH ×2 (08:48→21:46)
[2018-06-08] MEDS: FAMOTIDINE (20 MG) 20 MG TABLET GT SCH (08:48)
[2018-06-08] MEDS: ZINC SULFATE 220 MG CAPSULE PO SCH (08:48)
--- NOTE | 2018-06-08 09:20 | NUR ---
RN NOTES OBTAINED CONSENT FROM REUBEN VILLATORO (DAUGHTER) FOR THE PLANNED EXCISIONAL DEBRIDEMENT OF SACRAL WOUND. RISK AND BENEFITS EXPLAINED. ALL QUESTIONS ENTERTAINED AND ADDRESSED APPROPRIATELY. CONSENT VERIFIED WITH THERESA Fischer RN.
[2018-06-08] MEDS ORDERED: POVIDONE-IODINE OINT 28.4 GM TUBE TP PRN (09:30)
[2018-06-08 12:00] VITALS: BP 111/46
[2018-06-08 16:00] VITALS: BP_SYST 111; BP_SYST 95; BP_DIAS 42; BP_DIAS 46
[2018-06-08] MEDS: NEPRO 1,000 ML BOTTLE GT PRN (17:11)
--- NOTE | 2018-06-08 19:22 | NUR ---
RN NOTES ENDORSED PATIENT FOR CONTINUITY OF CARE. NO ACUTE CHANGES FOR THE ENTIRE SHIFT. ALL NURSING NEEDS ANTICIPATED AND MET.
--- NOTE | 2018-06-08 19:40 | NUR ---
BAREBACK RIDER INITIAL NOTES, PATIENT IN BED RESTING COMFORTABLY ON MECHANICAL VENTILATOR TOLERATING SETTINGS WELL, BREATHING EVEN AND UNLABORED, NO DISTRESS NOTED OR SOB AT THIS TIME, NO S/S OF PAIN OR DISCOMFORT, GTF INFUSING WELL AND PATIENT TOLERATED WELL, NO RESIDUAL NOTED AT THIS TIME, KEPT CLEAN AND DRY, REPOSITION AND SUCTION PROVIDED AT THIS TIME, WILL CONTINUE TO MONITOR CLOSELY,
[2018-06-08 20:00] VITALS: BP 99/48
[2018-06-08] MEDS: LACTULOSE 10 G/15 ML UDC (PYXIS) PO SCH (21:46)
[2018-06-09] VITALS (8 sets, daily range): BP systolic 76–119; BP diastolic 34–69
[2018-06-09] MEDS: MIDODRINE HCL (5MG) 5 MG TABLET PO PRN ×2 (00:21→17:05)
--- NOTE | 2018-06-09 00:25 | NUR ---
HIGHWAY TRAFFIC CONTROL TECHNICIAN NOTES, NOTED PATIENT WITH BP 89/48, MIDODRINE 10MG PRN ADMINISTERED ORDERED, WILL CONTINUE TO MONITOR CLOSELY.
--- NOTE | 2018-06-09 01:45 | NUR ---
CART PUSHER NOTES, MD BONNER IN THIS UNIT AT THIS TIME ASSESSED PATIENT AND CHECKED LAST 24HRS BLOOD SUGAR LEVEL AND ORDERED LANTUS 40 UNITS SQ NOW AND CONTINUE LANTUS 40 UNITS ROUTINE EVERYDAY AT MIDNIGHT, ORDER NOTED AND CARRIED OUT, WILL CONTINUE TO MONITOR PATIENT CLOSELY. .
[2018-06-09] MEDS ORDERED: INSULIN GLARGINE, 100 UNIT/ML CARTRIDGE SQ ONE (02:00)
--- NOTE | 2018-06-09 02:00 | NUR ---
ASSIGNER NOTES, AFTER RECHECK OF BP NOTED BP 128/68, WILL CONTINUE TO MONITOR CLOSELY.
[2018-06-09] MEDS: BLOOD SUGAR DIAGNOSTIC 1 EACH STRIP IN SCH ×4 (05:54→23:15)
[2018-06-09] MEDS: PIPERACILLIN /TAZOBACTAM 2.25 G in IV D5W 50 ML IV SCH ×3 (05:54→21:08)
[2018-06-09] MEDS: INSULIN REGULAR, HUMAN 100 UNIT/ML 3 ML VIAL SQ PRN ×4 (05:56→23:13)
--- NOTE | 2018-06-09 06:59 | NUR ---
ASSEMBLYMAN OR WOMAN CLOSING NOTES, PATIENT IN BED ON MECHANICAL VENTILATOR TOLERATING SETTINGS WELL, BREATHING EVEN AND UNLABORED, NO DISTRESS NOTED OR SOB AT THIS TIME, ELY MIDLINE INTACT AND PATENT, NO S/S OF PAIN OR DISCOMFORT, GTF INFUSING WELL AND PATIENT TOLERATED WELL, KEPT CLEAN AND DRY, AND WELL REPOSITIONED AT THIS TIME, EPISODE OF HYPOTENSION DURING EMAIL ENGINEER MIDODRINE GIVEN AFTER THAT BP WNL, HYPERGLYCEMIC EPISODES WITH NEW ORDER FOR LANTUS 40 UNITS SQ EVERY DAY AT MIDNIGHT PER DR BONNER, WILL ENDORSE CONTINUITY OF CARE TO ONCOMING NURSE.
--- NOTE | 2018-06-09 07:42 | NUR ---
RT PATIENT REC'D TRACHED ON [facility] VENT WITH ORDERED SETTINGS TOLERATED WELL. VENT ALARMS CHECKED + AUDIBLE. CUFF PRESSURE CHECKED ISSUE CLERK. TRACH SECURE + IN PROPER POSITION. PATIENT AIRWAY SUCTIONED WITH SMALL TO MOD AMT OF PALE SEMI-THICK SECRETIONS. AMBU BAG AT [facility]. CONT CURRENT PLAN OF RESP CARE. Addendum: 06/09/18 at 1359 by BATSHEVA ORNELAS RT Amended: Links added.
[2018-06-09] MEDS: CLOTRIMAZOLE 1% 15 GM TUBE TP SCH ×2 (08:41→16:53)
[2018-06-09] MEDS: HYDROGEL DRESSING 90 GM TUBE TP SCH (08:42)
[2018-06-09] MEDS: Z GUARD REMEDY 2 OZ OINT TP SCH (08:42)
[2018-06-09] MEDS: APIXABAN 2.5 MG TABLET GT SCH ×2 (08:46→21:08)
[2018-06-09] MEDS: ZINC SULFATE 220 MG CAPSULE PO SCH (08:46)
[2018-06-09] MEDS: FAMOTIDINE (20 MG) 20 MG TABLET GT SCH (08:46)
[2018-06-09] MEDS: ACIDOPHILUS/BULGARICUS 1 EACH TAB.CHEW PO SCH (08:46)
[2018-06-09] MEDS ORDERED: IV NS 0.9% 1,000 ML BAG IV STA (17:44)
--- NOTE | 2018-06-09 19:20 | NUR ---
Handoff to night Rebecca hernandez RN. Keith Dong RN Addendum: 06/09/18 at 1922 by KEITH DONG RN Denise álvarez RN
--- NOTE | 2018-06-09 19:33 | NUR ---
RT NOTE: RECEIVED TRACH PT ON MECHANICAL VENT WITH NOTED SETTINGS. SX DONE WITH MODERATE AMOUNT OF THICK YELLOW SECRETIONS. PT TRACH PATENT AND SECURE. DRUM BUILDER DONE. AMBU BAG AT BEDSIDE. VENT PLUGGED INTO RED OUTLET. ALARMS ARE ON AND AUDIBLE. WILL CONTINUE TO MONITOR. Addendum: 06/10/18 at 0121 by KIM MESSER RT Amended: Links added.
--- NOTE | 2018-06-09 19:54 | NUR ---
WINE CONSULTANT OPENING NOTES RECEIVED REPORT FROM JEIMY CARDENAS. PATIENT OBTUNDED. BREATHING EVEN & UNLABORED W/ TRACH INTACT & TOLERATING VENT SETTINGS AC 14, TV 500, FIO2 40%, PEEP 5. NO RESPIRATORY DISTRESS NOTED. ON TELE W/ SINUS TACH, HR 100. RIGHT UPPER ARM MIDLINE & RIGHT HAND IV #22 INTACT & PATENT W/ DRESSING CDI, SALINE LOCKED. RIGHT CHEST WALL HD CATH IN PLACE. G-TUBE FLUSHING WELL W/ GTF NEPRO RUNNING @ 45 ML/HR. NO RESIDUAL NOTED @ THIS TIME. FLEXISEAL DRAINING LIQUID, BROWN OUTPUT. NO S/S OF PAIN OR DISCOMFORT. SAFETY MEASURES IN PLACE W/ SIDE RAILS UP & BED LOCKED & IN LOWEST POSITION. TURNED & REPOSITIONED. WILL CONTINUE TO MONITOR.
[2018-06-09] MEDS: LACTULOSE 10 G/15 ML UDC (PYXIS) PO SCH (21:08)
[2018-06-09] MEDS: INSULIN GLARGINE, 100 UNIT/ML CARTRIDGE SQ SCH (23:12)
[2018-06-10] VITALS (7 sets, daily range): BP systolic 43–136; BP diastolic 33–68
[2018-06-10] MEDS: MIDODRINE HCL (5MG) 5 MG TABLET PO PRN (03:37)
--- NOTE | 2018-06-10 04:30 | NUR ---
DEPARTMENT HELPER NOTES BP 84/33. MIDODRINE 10MG PRN GIVEN. PATIENT ASYMPTOMATIC. WILL RECHECK BP & CONTINUE TO MONITOR.
--- NOTE | 2018-06-10 05:25 | NUR ---
GLUING MACHINE OPERATOR AUTOMATIC NOTES BP RECHECKED 119/47, HR 105. WILL CONTINUE TO MONITOR.
[2018-06-10] MEDS: PIPERACILLIN /TAZOBACTAM 2.25 G in IV D5W 50 ML IV SCH ×3 (05:36→22:25)
[2018-06-10] MEDS: BLOOD SUGAR DIAGNOSTIC 1 EACH STRIP IN SCH ×3 (05:36→17:43)
[2018-06-10] MEDS: INSULIN REGULAR, HUMAN 100 UNIT/ML 3 ML VIAL SQ PRN ×3 (05:37→17:45)
--- NOTE | 2018-06-10 07:10 | NUR ---
Female scott pt received on mechanical vent. Pt scott is secure. Vent is plugged into a red outlet, alarms are set and audible, and BMV is at bedside. Addendum: 06/10/18 at 1341 by JESSICA WEISS RT Amended: Links added.
[2018-06-10 07:58] LABS: CALCIUM, SERUM 9.9 mg/dL (8.5-10.1); CARBON DIOXIDE 27 mmol/L (21-32); CHLORIDE 97 mmol/L (98-107); CREATININE 5.4 mg/dL (0.6-1.3); POTASSIUM 3.8 mmol/L (3.5-5.1); SODIUM SERUM 137 mmol/L (136-145); UREA NITROGEN, BLOOD 66 mg/dL (7-18)
[2018-06-10 08:01] LABS: GLUCOSE 398 mg/dL (74-106)
--- NOTE | 2018-06-10 08:20 | NUR ---
RN NOTE: PATIENT RECEIVED OBTUNDED, OPEN EYES, RESPONSIVE TO VERBAL & TACTILE STIMULI. VENT-TRAC, SETTINGS TOLERATING WELL. NO S/S OF DISTRESS NOTED. TUBE FEEDING TOLERATING WELL, NO RESIDUAL NOTED. IV CATH INTACT, DRESSING DRY & CLEAN. CONTINUE TO CHECK BLOOD SUGAR. FLEXI SEAL INTACT, WITH LIQUID BROWNISH COLOR BM. SAFETY MEASURES OBSERVED. ASPIRATION PRECAUTIONS OBSERVED. WILL CONTINUE TO MONITOR.
[2018-06-10] MEDS: FAMOTIDINE (20 MG) 20 MG TABLET GT SCH (08:52)
[2018-06-10] MEDS: ZINC SULFATE 220 MG CAPSULE PO SCH (08:52)
[2018-06-10] MEDS: APIXABAN 2.5 MG TABLET GT SCH ×2 (08:52→22:25)
[2018-06-10] MEDS: ACIDOPHILUS/BULGARICUS 1 EACH TAB.CHEW PO SCH (08:52)
[2018-06-10] MEDS: HYDROGEL DRESSING 90 GM TUBE TP SCH (08:54)
[2018-06-10] MEDS: Z GUARD REMEDY 2 OZ OINT TP SCH (08:54)
[2018-06-10] MEDS: CLOTRIMAZOLE 1% 15 GM TUBE TP SCH ×2 (08:54→17:43)
[2018-06-10 08:59] LABS: HEMATOCRIT 29 % (33-45); MEAN CORPUSCULAR VOLUME 95 fL (82-100); WHITE BLOOD COUNT (AUTO) 15.7 K/uL (4.3-11.0)
[2018-06-10 09:00] LABS: BASOPHILS % (AUTO) 0.7 % (0.0-2.0); MEAN CORPUSCULAR HGB CONC 32 g/dl (31.0-36.0); MONOCYTES % (AUTO) 9.9 % (2.0-12.0); NEUTROPHILS # (AUTO) 12.2 /CMM (1.8-8.9); NEUTROPHILS % (AUTO) 77.4 % (43.0-81.0); PLATELET COUNT (AUTO) 249 /CMM (150-450); RDW COEFFICIENT OF VARIATION 22.5 (11.5-15.0)
[2018-06-10 09:01] LABS: BASOPHILS # (AUTO) 0.1 /CMM (0.0-0.2); LYMPHOCYTES # (AUTO) 1.4 /CMM (0.8-4.8); MONOCYTES # (AUTO) 1.6 /CMM (0.1-1.30)
[2018-06-10] MEDS ORDERED: FEE PK DOSING 1 MIN EA MC ONE (13:41)
[2018-06-10] MEDS: NEPRO 1,000 ML BOTTLE GT PRN (17:43)
[2018-06-10] MEDS: ALBUMIN 25% 25 GM in PREMIX 1 EA IV PRN (17:44)
--- NOTE | 2018-06-10 19:05 | NUR ---
RN NOTE: NO SIGNIFICANT CHANGES NOTED DURING SHIFT. HD DONE TODAY, NO OUTPUT. NOTED LOW BP DURING HD, ALBUMIN IV WAS GIVEN BY HD RN. SAFETY MEASURES OBSERVED. VENT-TRAC SETTINGS TOLERATING WELL. TUBE FEEDING TOLERATING WELL. NO RESIDUALS NOTED. WILL ENDORSE TO PM SHIFT FOR CONTINUITY OF CARE.
[2018-06-10] MEDS: LACTULOSE 10 G/15 ML UDC (PYXIS) PO SCH ×2 (22:00→22:26)
[2018-06-10] MEDS: INSULIN GLARGINE, 100 UNIT/ML CARTRIDGE SQ SCH (22:31)
[2018-06-11] VITALS: BP 107/53
[2018-06-11] MEDS: INSULIN REGULAR, HUMAN 100 UNIT/ML 3 ML VIAL SQ PRN ×5 (00:07→23:13)
[2018-06-11] MEDS: BLOOD SUGAR DIAGNOSTIC 1 EACH STRIP IN SCH ×5 (00:08→23:18)
[2018-06-11 04:00] VITALS: BP_SYST 107; BP_SYST 139; BP_DIAS 52; BP_DIAS 57
[2018-06-11] MEDS: PIPERACILLIN /TAZOBACTAM 2.25 G in IV D5W 50 ML IV SCH ×3 (04:54→21:04)
[2018-06-11 08:00] VITALS: BP 109/46
--- NOTE | 2018-06-11 08:45 | NUR ---
RN NOTES RECEIVED PT OBTUNDED, NAD. REMAINS ON MECH VENT AND SETTINGS TOLERATED WELL. GT FEEDING TOLERATED WELL, HOB KEPT ELEVATED. POSITIONED FOR COMFORT; BOTH HEELS KEPT ELEVATED. WILL MONITOR
[2018-06-11] MEDS: ZINC SULFATE 220 MG CAPSULE PO SCH (09:34)
[2018-06-11] MEDS: APIXABAN 2.5 MG TABLET GT SCH ×2 (09:34→21:04)
[2018-06-11] MEDS: FAMOTIDINE (20 MG) 20 MG TABLET GT SCH (09:34)
[2018-06-11] MEDS: ACIDOPHILUS/BULGARICUS 1 EACH TAB.CHEW PO SCH (09:34)
[2018-06-11] MEDS: HYDROGEL DRESSING 90 GM TUBE TP SCH (09:36)
[2018-06-11] MEDS: CLOTRIMAZOLE 1% 15 GM TUBE TP SCH ×2 (09:36→17:03)
[2018-06-11] MEDS: Z GUARD REMEDY 2 OZ OINT TP SCH (09:36)
[2018-06-11 12:00] VITALS: BP 96/42
[2018-06-11 16:00] VITALS: BP 110/47
--- NOTE | 2018-06-11 19:17 | NUR ---
RN NOTES TURNED AND REPOSITIONED Q SHIFT. HOB KEPT ELEVATED. ASPIRATION PRECAUTION OBSERVED. ALL NEEDS ATTENDED. ENDORSED TO NEXT SHIFT RN FOR CONTINUITY OF CARE IN STABLE CONDITION
[2018-06-11 20:00] VITALS: BP 136/49
--- NOTE | 2018-06-11 21:32 | NUR ---
PT RCVD TRACH'D ON MECHANICAL VENT WITH CHARTED SETTINGS. PT TOLERATING SETTINGS WELL AT THIS TIME. SX DONE. PT TRACH PATENT AND SECURE. AMBU BAG AT BEDSIDE. VENT PLUGGED INTO RED OUTLET. ALARMS ARE ON AND AUDIBLE. WILL CONTINUE TO MONITOR. Addendum: 06/11/18 at 2133 by CATY AKINS RT Amended: Links added.
[2018-06-11] MEDS: LACTULOSE 10 G/15 ML UDC (PYXIS) PO SCH (22:00)
[2018-06-11] MEDS ORDERED: INSULIN GLARGINE, 100 UNIT/ML CARTRIDGE SQ SCH (22:00)
[2018-06-11] MEDS: NEPRO 1,000 ML BOTTLE GT PRN (22:05)
[2018-06-12] VITALS: BP 107/49
[2018-06-12 04:00] VITALS: BP_SYST 105; BP_SYST 98; BP_DIAS 50; BP_DIAS 51
[2018-06-12] MEDS: INSULIN REGULAR, HUMAN 100 UNIT/ML 3 ML VIAL SQ PRN ×2 (05:16→12:04)
[2018-06-12] MEDS: PIPERACILLIN /TAZOBACTAM 2.25 G in IV D5W 50 ML IV SCH ×2 (05:18→13:07)
[2018-06-12] MEDS: BLOOD SUGAR DIAGNOSTIC 1 EACH STRIP IN SCH ×2 (05:18→11:52)
[2018-06-12 07:40] LABS: BASOPHILS # (AUTO) 0.1 /CMM (0.0-0.2); BASOPHILS % (AUTO) 0.4 % (0.0-2.0); EOSINOPHILS % (AUTO) 3.9 % (0.0-6.0); HEMATOCRIT 30 % (33-45); HEMOGLOBIN 9.7 g/dL (11.5-14.8); LYMPHOCYTES # (AUTO) 1.8 /CMM (0.8-4.8); MEAN CORPUSCULAR HGB CONC 32 g/dl (31.0-36.0); MEAN CORPUSCULAR VOLUME 96 fL (82-100); MONOCYTES # (AUTO) 1.3 /CMM (0.1-1.30); MONOCYTES % (AUTO) 9.2 % (2.0-12.0); NEUTROPHILS # (AUTO) 10.3 /CMM (1.8-8.9); NEUTROPHILS % (AUTO) 73.5 % (43.0-81.0); PLATELET COUNT (AUTO) 268 /CMM (150-450); RDW COEFFICIENT OF VARIATION 24.2 (11.5-15.0); RED BLOOD CELL COUNT(AUTO) 3.14 MIL/uL (4.0-5.2); WHITE BLOOD COUNT (AUTO) 13.9 K/uL (4.3-11.0)
--- NOTE | 2018-06-12 07:40 | NUR ---
RN OPENING NOTES RECEIVED PT. PT IS STABLE AND IN BED. PT IS OBTUNDED, DOES NOT APPEAR TO BE IN PAIN. NO S/S OF RESP DISTRESS OR SOB. TRACH NOTED, PT IS VENT DEPENDENT, SETTINGS IN PLACE. TELE MONITOR READING SR 104 BPM AT THIS TIME. HD SCHEDULED FOR LATER IN AM. PT STILL AWAITING BOTH CARDIAC AND INFECTIOUS DISEASE CLEARANCE PRIOR TO D/C FROM HOSPITAL. PULMONARY CLEARED PT ON . SAFETY MEASURES IN PLACE, CALL LIGHT WITHIN REACH. WILL CONTINUE TO MONITOR.
[2018-06-12 07:50] LABS: CALCIUM, SERUM 10.1 mg/dL (8.5-10.1); CARBON DIOXIDE 27 mmol/L (21-32); CHLORIDE 98 mmol/L (98-107); CREATININE 4.9 mg/dL (0.6-1.3); GLUCOSE 239 mg/dL (74-106); MAGNESIUM 2.3 mg/dL (1.8-2.4); POTASSIUM 4.1 mmol/L (3.5-5.1); SODIUM SERUM 137 mmol/L (136-145); UREA NITROGEN, BLOOD 59 mg/dL (7-18)
[2018-06-12 08:00] VITALS: BP_SYST 104; BP_DIAS 30; BP_DIAS 40
[2018-06-12] MEDS: ACIDOPHILUS/BULGARICUS 1 EACH TAB.CHEW PO SCH (08:37)
[2018-06-12] MEDS: ZINC SULFATE 220 MG CAPSULE PO SCH (08:37)
[2018-06-12] MEDS: FAMOTIDINE (20 MG) 20 MG TABLET GT SCH (08:37)
[2018-06-12] MEDS: APIXABAN 2.5 MG TABLET GT SCH (08:37)
[2018-06-12] MEDS: Z GUARD REMEDY 2 OZ OINT TP SCH (08:39)
[2018-06-12] MEDS: HYDROGEL DRESSING 90 GM TUBE TP SCH (08:39)
[2018-06-12] MEDS: CLOTRIMAZOLE 1% 15 GM TUBE TP SCH (08:40)
--- NOTE | 2018-06-12 11:28 | NUR ---
RT RECD PT TRACHED INTACT AND SECURED ON MECH VENT LUCILLE ORDERED SETTING. BAG AND MASK AT [facility], VENT PLUGGED IN RED OUTLET ALARMS ON AND AUDIBLE. SX THICK YELLOW SECRETIONS. NO RESP DISTRESS NOTED ATT WILL CONTINUE TO MONITOR
[2018-06-12 12:00] VITALS: BP_SYST 88; BP_DIAS 18; BP_DIAS 26
[2018-06-12 12:17] VITALS: BP 92/22
[2018-06-12] MEDS: MIDODRINE HCL (5MG) 5 MG TABLET PO PRN (12:17)
--- NOTE | 2018-06-12 12:30 | NUR ---
RN NOTES HD COMPLETED, RESULTED IN 2L OUTPUT. FOLLOWING DIALYSIS PT WAS HYPOTENSIVE WITH BP OF 90/32. [place] GIVEN. WILL CONTINUE TO MONITOR BP.
--- NOTE | 2018-06-12 17:30 | NUR ---
DISCHARGE NOTE PT DISCHARGED TO [facility]. REPORT CALLED AND GIVEN TO CARISSA CARDENAS. PT STABLE, VSS, NO S/S OF RESP DISTRESS/SOB. PT DOES NOT APPEAR TO BE IN PAIN. FLEXISEAL AND RIGHT HAND IV ACCESS REMOVED. DISCHARGE TEACHING PERFORMED, HOWEVER PT IS UNABLE TO COMPREHEND TEACHING. ELY MIDLINE REMAINS PT WILL CONTINUE ZOSYN IV THERAPY AT [facility]. ID BAND REMOVED. WOUND PHOTOS TAKEN. PT UNABLE TO SIGN DISCHARGE PAPERWORK, SIGNED BY TWO LICENSED RNS. PT WAS PICKED UP AND LEFT HOSPITAL WITH [facility].
== END 2018-06-12 18:08 | DRG 130 ==
LOC: ER 14:47 → TELE-TD 18:00 → TELE1 06-02 11:00
PROVIDERS: ADMIT Internal Medicine Rheumatology; ATTEND Internal Medicine Rheumatology
PROC: 5A1955Z Respiratory Ventilation, Greater than 96 Consecutive Hours (ICD-10-PCS; principal; 2018-06-01)
PROC: 5A1D70Z Performance of Urinary Filtration, Intermittent, Less than 6 Hours Per Day (ICD-10-PCS; principal; 2018-06-01)
PROC: 5A1D70Z Performance of Urinary Filtration, Intermittent, Less than 6 Hours Per Day (ICD-10-PCS; 2018-06-02)
PROC: 5A1D70Z Performance of Urinary Filtration, Intermittent, Less than 6 Hours Per Day (ICD-10-PCS; 2018-06-03)
PROC: 5A1D70Z Performance of Urinary Filtration, Intermittent, Less than 6 Hours Per Day (ICD-10-PCS; 2018-06-05)
PROC: 05H533Z Insertion of Infusion Device into Right Subclavian Vein, Percutaneous Approach (ICD-10-PCS; 2018-06-05)
PROC: B546ZZA Ultrasonography of Right Subclavian Vein, Guidance (ICD-10-PCS; 2018-06-05)
PROC: 5A1D70Z Performance of Urinary Filtration, Intermittent, Less than 6 Hours Per Day (ICD-10-PCS; 2018-06-07)
PROC: 0JB70ZZ Excision of Back Subcutaneous Tissue and Fascia, Open Approach (ICD-10-PCS; 2018-06-09)
PROC: 5A1D70Z Performance of Urinary Filtration, Intermittent, Less than 6 Hours Per Day (ICD-10-PCS; 2018-06-10)
PROC: 5A1D70Z Performance of Urinary Filtration, Intermittent, Less than 6 Hours Per Day (ICD-10-PCS; 2018-06-12)
DX: J96.21 Acute and chronic respiratory failure with hypoxia (principal); I13.2 Hypertensive heart and chronic kidney disease with heart failure and with stage 5 chronic kidney disease, or end stage renal disease; G93.40 Encephalopathy, unspecified; E87.0 Hyperosmolality and hypernatremia; L89.153 Pressure ulcer of sacral region, stage 3; E11.22 Type 2 diabetes mellitus with diabetic chronic kidney disease; I50.9 Heart failure, unspecified; Z99.11 Dependence on respirator [ventilator] status; Z93.0 Tracheostomy status; I95.3 Hypotension of hemodialysis; N18.6 End stage renal disease; E86.1 Hypovolemia; Z99.2 Dependence on renal dialysis; Z93.1 Gastrostomy status; Z79.01 Long term (current) use of anticoagulants; Z79.4 Long term (current) use of insulin; Z79.899 Other long term (current) drug therapy; M85.9 Disorder of bone density and structure, unspecified; J98.11 Atelectasis; D64.9 Anemia, unspecified
CPT/HCPCS: 31720; 36415; 36569; 36600; 71045-TC; 80048-TC; 80076-TC; 82803-TC; 82945-TC; 82962-TC; 83605-TC; 83735-TC; 83880; 84100-TC; 84443-TC; 84484-TC; 85025-TC; 85652-TC; 85730-TC; 86140-TC; 87040-TC; 87070-TC; 87081-TC; 87186-TC; 90935-TC; 93307-TC; 94002-TC; 94003-TC; 94664-TC; 94760-TC; 94762-TC; A4216; A4606; A6248; A6253; A6402; J1815; J2543; J7030; J7060; P9047; Z7610